=== PATIENT | female | born 1985 | race Caucasian/White ===

== ENCOUNTER → 2017-04-25 | Outpatient (CLI) | payer BC ==
--- NOTE | 2017-04-25 14:02 | RAD ---
Renal ultrasound 04/25/2017 Indication: Bilateral flank pain. Comparison study: None Findings: Ultrasound evaluation of the kidneys was performed. Static images were submitted to PACS. The right kidney measures 10.7 cm in length. Left kidney measures 10.3 cm in length. Kidneys are normal in appearance evidence of hydronephrosis, nephrolithiasis, or focal renal lesion. Blood flow the kidneys is unremarkable and color Doppler imaging. Limited visualization of the bladder is unremarkable. Bilateral ureteral jets are noted. Impression: Normal sonographic appearance of the kidneys
== END | disposition home or self-care (01) ==
LOC: US 12:53
PROVIDERS: ATTEND Nurse Practitioner Family
DX: R10.9 Unspecified abdominal pain (principal)
CPT/HCPCS: 76770

== ENCOUNTER 2017-05-13 15:20 | Emergency (ER) | payer BC ==
[~2017-05-13] VITALS: Ht 157.5 cm; Wt 99.3 kg
--- NOTE | 2017-05-13 16:10 | PHYS DOC ---
Past History Past Medical History: Bipolar, Hypertension Smoking: Cigarettes, Less than 1pk/day Adult General Chief Complaint Chief Complaint: HEADACHE HPI HPI 32-year-old female patient complaining of sharp and aching pain on top of her head for the last 8 days as a constant pain with episodes of sharp pain. Patient states during episodes of sharp pain she feels photophobia and numbness of her fingers. Patient denies history of head injury, migraine headache or headache, fever and chills, nausea and vomiting, neck pain. Patient rated her pain 8/10. Patient states she has had history of hypertension since she was 13 years old but doesn't take medication and seen by her primary care physician a few days ago and had prescription of medications and supposed to pick it up today. Review of Systems Review of Systems Constitutional: Denies fever or chills [] Eyes: Denies change in visual acuity, redness, or eye pain , reports photophobia ] HENT: Denies nasal congestion or sore throat [] Respiratory: Denies cough or shortness of breath [] Cardiovascular: No additional information not addressed in HPI [] GI: Denies abdominal pain, nausea, vomiting, bloody stools or diarrhea [] : Denies dysuria or hematuria [] Musculoskeletal: Denies back pain or joint pain [] Integument: Denies rash or skin lesions [] Neurologic: Reports headache headache, denies focal weakness or sensory changes [] Endocrine: Denies polyuria or polydipsia [] All other systems were reviewed and found to be within normal limits, except as documented in this note. Current Medications Current Medications Current Medications Medications (Trade) Dose Ordered Sig/[facility] Start Time Stop Time Status Last Admin Dose Admin Clonidine HCl (Catapres) 0.1 mg 1X ONCE 05/13/17 16:15 05/13/17 16:16 Allergies Allergies Allergies Coded Allergies Type Severity Reaction Last Updated Verified No Known Drug Allergies 05/13/17 No Physical Exam Physical Exam Constitutional: Well developed, well nourished, mild distress, non-toxic appearance anxious. [] HENT: Normocephalic, atraumatic, bilateral external ears normal, oropharynx moist, no oral exudates, nose normal. [] Eyes: PERRLA, EOMI, conjunctiva normal, no discharge. [] Neck: Normal range of motion, no tenderness, supple, no stridor. [] Cardiovascular:Heart rate regular rhythm, no murmur [] Lungs & Thorax: Bilateral breath sounds clear to auscultation [] Abdomen: Bowel sounds normal, soft, no tenderness, no masses, no pulsatile masses. [] Skin: Warm, dry, no erythema, no rash. [] Back: No tenderness, no CVA tenderness. [] Extremities: No tenderness, no cyanosis, no clubbing, ROM intact, no edema. [] Neurologic: Alert and oriented X 3, normal motor function, normal sensory function, no focal deficits noted. [] Psychologic:Anxious, judgement normal, mood normal. [] EKG EKG [] Radiology/Procedures Radiology/Procedures [] [place] [address] IMAGING REPORT Signed PATIENT: QING SAMUEL ACCOUNT: [id number] : 1985 LOCATION: ER AGE: 32 SEX: F EXAM STATUS: REG ER ORD. PHYSICIAN: RACHEL BYERS MD REASON: headache PROCEDURE: CT HEAD WO CONTRAST CT head without contrast 05/13/2017 Indication: Blurred vision with stabbing sensation behind the right eye and sinus. Comparison: CT head 10/12/2006 Technique: Multiple axial noncontrast CT images of the head were obtained from the skull base through the vertex. Findings: The ventricles, sulci and basal cisterns are within normal limits. Ryan-white matter differentiation is normal. There is no acute intracranial hemorrhage. There is no mass, mass effect or midline shift. Posterior fossa is within normal limits. Sellar and suprasellar cistern appear normal. Orbits are normal in appearance. Paranasal sinuses are well aerated. Mastoid air cells are well aerated. Scalp and calvaria are normal. Impression: There is no acute intracranial hemorrhage. Course & Med Decision Making Course & Med Decision Making Pertinent Imaging studies reviewed. (See chart for details) Evaluation of patient in ER showed 32-year-old female patient with history of hypertension without taking medication complaining of constant headache for 8 days. Patient had unremarkable physical exam. Blood pressure was 190s/110s at arrival. Patient treated with Toradol and clonidine and had unremarkable CT of head. Patient felt better at time of discharge. Patient already has prescription for hypertension and instructed to start her medication and follow up with her primary care physician regarding hypertension. discharge: I've spoken with the patient and/or caregivers. I've explained the patient's condition, diagnosis and treatment plan based on information available to me at this time. I've answered the patient's and/or caregivers questions and addressed any concerns. The patient and/or caregivers have a good understanding the patient's diagnosis, condition and treatment plan as can be expected at this point. Vital signs have been stabilized. The patient's condition is stable for discharge from the emergency department. The patient will pursue further outpatient evaluation with her primary care provider or other designated consulting physician as outlined in the discharge instructions. Patient and/or caregivers are agreeable to this plan of care and follow-up instructions have been explained in detail. The patient and/or caregivers have received these instructions in written format and expressed understanding of these discharge instructions. The patient and her caregivers are aware that if any significant change in condition or worsening of symptoms should prompt him to immediately return to this of the closest emergency department. If an emergent department is not readily available I would encourage him to call 911. Tomasz Disclaimer Dragon Disclaimer This electronic medical record was generated, in whole or in part, using a voice recognition dictation system. Departure Departure: Impression: Primary Impression: Headache Additional Impressions: Uncontrolled hypertension Tobacco abuse Tobacco abuse counseling Disposition: HOME, SELF-CARE (At 1750) Condition: IMPROVED Referrals: AYLIN MACIAS APRN (PCP) Patient Instructions: General Headache Without Cause, [id number], Hypertension Additional Instructions: Drink plenty of liquids Follow-up with your primary care physician in 3-5 days Return to ER if not getting better Scripts Naproxen (NAPROSYN) 500 Mg Tablet 500 MG PO BID, #14 Prov: RACHEL BYERS MD 05/13/17 Problem Qualifiers RACHEL BYERS MD May 13, 2017 16:10
[2017-05-13] MEDS ORDERED: cloNIDine HCL 0.1 MG TABLET PO ONE (16:15)
--- NOTE | 2017-05-13 16:47 | RAD ---
CT head without contrast 05/13/2017 Indication: Blurred vision with stabbing sensation behind the right eye and sinus. Comparison: CT head 10/12/2006 Technique: Multiple axial noncontrast CT images of the head were obtained from the skull base through the vertex. Findings: The ventricles, sulci and basal cisterns are within normal limits. Ryan-white matter differentiation is normal. There is no acute intracranial hemorrhage. There is no mass, mass effect or midline shift. Posterior fossa is within normal limits. Sellar and suprasellar cistern appear normal. Orbits are normal in appearance. Paranasal sinuses are well aerated. Mastoid air cells are well aerated. Scalp and calvaria are normal. Impression: There is no acute intracranial hemorrhage. PQRS Compliance Statement: One or more of the following individualized dose reduction techniques were utilized for this examination: 1. Automated exposure control 2. Adjustment of the mA and/or kV according to patient size 3. Use of iterative reconstruction technique
[2017-05-13] MEDS ORDERED: KETOROLAC 60 MG/2 ML VIAL. IM ONE (17:30)
[2017-05-13] MEDS ORDERED: NAPR-683 PO (17:47)
[2017-05-13 18:10] VITALS: BP 138/95
== END 2017-05-13 18:10 | disposition home or self-care (01) ==
LOC: ER 15:20
DX: R51 Headache (principal); I10 Essential (primary) hypertension; F31.9 Bipolar disorder, unspecified; F17.210 Nicotine dependence, cigarettes, uncomplicated; Z71.6 Tobacco abuse counseling
CPT/HCPCS: 70450; 96372; 99284; J1885

== ENCOUNTER 2019-06-01 15:19 | Emergency (ER) | payer BC ==
[~2019-06-01] VITALS: Ht 157.5 cm; Wt 98.4 kg
[~2019-06-01 15:19] MED LIST: NAPR-683 PO
[2019-06-01 15:57] LABS: BASO % 0 % (0-3); EOS # 0.1 x10^3/uL (0.0-0.7); EOS % 2 % (0-3); HEMATOCRIT 46.1 % (36.0-47.0); HEMOGLOBIN 16.1 g/dL (12.0-15.5); LYMPH # 1.6 x10^3/uL (1.0-4.8); LYMPH % 31 % (24-48); MEAN CORPUSCULAR HEMOGLOBIN 33 pg (25-35); MEAN CORPUSCULAR HGB CONC 35 g/dL (31-37); MEAN CORPUSCULAR VOLUME 94 fL (79-100); MONO # 0.4 x10^3/uL (0.0-1.1); MONO % 7 % (0-9); NEUT # 3.2 x10^3uL (1.8-7.7); NEUT % 60 % (31-73); PLATELET COUNT 120 x10^3/uL (140-400); RED BLOOD COUNT 4.93 x10^6/uL (3.50-5.40); RED CELL DISTRIBUTION WIDTH 12.8 % (11.5-14.5); WHITE BLOOD COUNT 5.4 x10^3/uL (4.0-11.0)
--- NOTE | 2019-06-01 16:04 | RAD ---
PORTABLE CHEST 1V History: Chest pain Comparison: None. Findings: No consolidation or pleural effusion. Normal heart size. No pneumothorax. Impression: 1. No acute cardiopulmonary process. Electronically signed by: Kofi Anderson DO (06/01/2019 4:01 PM) [id number]
[2019-06-01 16:05] LABS: CALCIUM 8.8 mg/dL (8.5-10.1); GFR 63.9; POTASSIUM 3.6 mmol/L (3.5-5.1)
[2019-06-01 16:10] LABS: ALBUMIN 3.9 g/dL (3.4-5.0); ALBUMIN/GLOBULIN RATIO 1.1 (1.0-1.7); MAGNESIUM 1.6 mg/dL (1.8-2.4); TOTAL BILIRUBIN 0.6 mg/dL (0.2-1.0); TOTAL PROTEIN 7.5 g/dL (6.4-8.2)
[2019-06-01 16:15] LABS: BILIRUBIN,URINE NEG (NEG); CLARITY,URINE CLEAR; COLOR,URINE STRAW; GLUCOSE,URINE NEG (NEG)
[2019-06-01 16:16] LABS: BACTERIA,URINE 0 /HPF (0-FEW); NITRITE,URINE NEG (NEG); RBC,URINE RARE /HPF (0-2); SQUAMOUS EPITHELIAL CELL,UR MOD /LPF; UROBILINOGEN,URINE 0.2 mg/dL (0.2 mg/dL); WBC,URINE RARE /HPF (0-4)
--- NOTE | 2019-06-01 16:31 | PHYS DOC ---
Past History Past Medical History: Bipolar, Hypertension Past Surgical History: No Surgical History Smoking: Cigarettes, Less than 1pk/day Alcohol Use: Occasionally Drug Use: None Adult General Chief Complaint Chief Complaint: MULTIPLE COMPLAINTS HPI HPI Patient is a 34-year-old female who presents with complaint of tingling in both of her arms and tightness in her chest. Patient states symptoms have been ongoing for the last few days. She denies any actual chest pain however. She also denies any shortness of breath. Patient denies any headache or laterali zing weakness. She denies any speech deficits. She does indicate that her blood pressure was elevated at home and she took her medication approximately 25 minutes before EMS arrived. [] Review of Systems Review of Systems Constitutional: Denies fever or chills [] Respiratory: Denies cough or shortness of breath [] Cardiovascular: No additional information not addressed in HPI [] GI: Denies abdominal pain, nausea, vomiting, bloody stools or diarrhea [] Integument: Denies rash or skin lesions [] Neurologic: Denies headache or focal weakness. Complains of tingling in her arms [] All other systems were reviewed and found to be within normal limits, except as documented in this note. Allergies Allergies Allergies Coded Allergies Type Severity Reaction Last Updated Verified No Known Drug Allergies 05/13/17 No Physical Exam Physical Exam Constitutional: Well developed, well nourished, no acute distress, non-toxic appearance. [] HENT: Normocephalic, atraumatic, bilateral external ears normal, oropharynx moist, no oral exudates, nose normal. [] Eyes: PERRLA, EOMI, conjunctiva normal, no discharge. [] Neck: Normal range of motion, no tenderness, supple, no stridor. [] Cardiovascular: Regular rate and rhythm [] Lungs & Thorax: Bilateral breath sounds clear to auscultation [] Abdomen: Bowel sounds normal, soft, no tenderness, no masses, no pulsatile masses. [] Skin: Warm, dry, no erythema, no rash. [] Extremities: No tenderness, no cyanosis, no clubbing, ROM intact, no edema. [] Neurologic: Alert and oriented X 3, no focal deficits noted. [] Current Patient Data Vital Signs Vital Signs Date Time Temp Pulse Resp B/P (MAP) Pulse Ox O2 Delivery O2 Flow Rate FiO2 06/01/19 15:31 97.7 102 30 197/109 (138) 100 Room Air Lab Results Laboratory Tests Test 06/01/19 15:25 06/01/19 15:28 White Blood Count 5.4 x10^3/uL (4.0-11.0) Red Blood Count 4.93 x10^6/uL (3.50-5.40) Hemoglobin 16.1 g/dL (12.0-15.5) H Hematocrit 46.1 % (36.0-47.0) Mean Corpuscular Volume 94 fL (79-100) Mean Corpuscular Hemoglobin 33 pg (25-35) Mean Corpuscular Hemoglobin Concent 35 g/dL (31-37) Red Cell Distribution Width 12.8 % (11.5-14.5) Platelet Count 120 x10^3/uL (140-400) L Neutrophils (%) (Auto) 60 % (31-73) Lymphocytes (%) (Auto) 31 % (24-48) Monocytes (%) (Auto) 7 % (0-9) Eosinophils (%) (Auto) 2 % (0-3) Basophils (%) (Auto) 0 % (0-3) Neutrophils # (Auto) 3.2 x10^3uL (1.8-7.7) Lymphocytes # (Auto) 1.6 x10^3/uL (1.0-4.8) Monocytes # (Auto) 0.4 x10^3/uL (0.0-1.1) Eosinophils # (Auto) 0.1 x10^3/uL (0.0-0.7) Basophils # (Auto) 0.0 x10^3/uL (0.0-0.2) Urine Collection Type Unknown Urine Color Straw Urine Clarity Clear Urine pH 5.5 Urine Specific [place] <=1.005 Urine Protein Neg (NEG-TRACE) Urine Glucose (UA) Neg mg/dL (NEG) Urine Ketones (Stick) Trace mg/dL (NEG) Urine Blood Neg (NEG) Urine Nitrite Neg (NEG) Urine Bilirubin Neg (NEG) Urine Urobilinogen Dipstick 0.2 mg/dL (0.2 mg/dL) Urine Leukocyte Esterase Neg (NEG) Urine RBC Rare /HPF (0-2) Urine WBC Rare /HPF (0-4) Urine Squamous Epithelial Cells Mod /LPF Urine Bacteria 0 /HPF (0-FEW) Sodium Level 135 mmol/L (136-145) L Potassium Level 3.6 mmol/L (3.5-5.1) Chloride Level 98 mmol/L (98-107) Carbon Dioxide Level 22 mmol/L (21-32) Anion Gap 15 (6-14) H Blood Urea Nitrogen 8 mg/dL (7-20) Creatinine 1.0 mg/dL (0.6-1.0) Estimated GFR (Cockcroft-Gault) 63.9 BUN/Creatinine Ratio 8 (6-20) Glucose Level 108 mg/dL (70-99) H Calcium Level 8.8 mg/dL (8.5-10.1) Magnesium Level 1.6 mg/dL (1.8-2.4) L Total Bilirubin 0.6 mg/dL (0.2-1.0) Aspartate Amino Transferase (AST) 32 U/L (15-37) Alanine Aminotransferase (ALT) 44 U/L (14-59) Alkaline Phosphatase 61 U/L (46-116) Troponin I Quantitative < 0.017 ng/mL (0-0.055) Total Protein 7.5 g/dL (6.4-8.2) Albumin 3.9 g/dL (3.4-5.0) Albumin/Globulin Ratio 1.1 (1.0-1.7) POC Urine HCG, Qualitative hcg negative (Negative) EKG EKG EKG demonstrates sinus tachycardia with a rate of 103 [] Radiology/Procedures Radiology/Procedures [] Impressions: PROCEDURE: PORTABLE CHEST 1V PORTABLE CHEST 1V History: Chest pain Comparison: None. Findings: No consolidation or pleural effusion. Normal heart size. No pneumothorax. Impression: 1. No acute cardiopulmonary process. Electronically signed by: Kofi Anderson DO (06/01/2019 4:01 PM) [id number] PROCEDURE: CT HEAD WO CONTRAST Exam: CT head INDICATION: Head pressure, elevated blood pressure paresthesias TECHNIQUE: Sequential axial images through the head were obtained without the administration of IV contrast. Comparisons: None FINDINGS: No focal parenchymal lesion or hemorrhage is identified. There is no midline shift or sulcal effacement. No acute vascular territory infarction is identified. Ryan-white distinction is preserved. The ventricular system is within normal limits without compression hydrocephalus. The basal cisterns are well maintained. The visualized portions of the paranasal sinuses and mastoid air cells are well-pneumatized. No acute fractures. IMPRESSION: No acute intracranial abnormality. Exposure: One or more of the following in the visualized dose reduction techniques were utilized for this examination: 1. Automated exposure control 2. Adjustment of the MA and/or KV according to patient size Use of iterative of reconstructive technique Electronically signed by: Shyanne Kang MD (06/01/2019 5:31 PM) [id number] Course & Med Decision Making Course & Med Decision Making Pertinent Labs and Imaging studies reviewed. (See chart for details) Patient moved to room upon arrival was evaluated by your medical staff after which an IV was established and blood work was drawn. Patient's work-up has returned unremarkable. Upon going into review work-up with patient, patient is presenting new complaints to include a lot of pressure in her head as well as burning pains that are going down her legs. Of note, patient noted to be hyperventilating during evaluation. No neurological deficits are noted on exam, once again. Dragon Disclaimer Dragon Disclaimer This electronic medical record was generated, in whole or in part, using a voice recognition dictation system. Departure Departure: Impression: Primary Impression: Essential hypertension Additional Impressions: Paresthesia Headache Dizziness Disposition: 01 HOME, SELF-CARE Condition: STABLE Referrals: CHIOMA HERNANDEZ (PCP) Patient Instructions: Headache, FAQs, Hypertension, Paresthesia, Vertigo Scripts Meclizine Hcl (MECLIZINE HCL) 25 Mg Tablet 1 TAB PO PRN TID PRN for DIZZINESS, #30 TAB Prov: SANDEEP REYES Jr. DO 06/01/19 Problem Qualifiers Additional Impressions: Headache Headache type: unspecified Headache chronicity pattern: unspecified pattern Intractability: not intractable Qualified Codes: R51 - Headache SANDEEP REYES Jr. DO Jun 01, 2019 16:31
--- NOTE | 2019-06-01 17:34 | RAD ---
Exam: CT head INDICATION: Head pressure, elevated blood pressure paresthesias TECHNIQUE: Sequential axial images through the head were obtained without the administration of IV contrast. Comparisons: None FINDINGS: No focal parenchymal lesion or hemorrhage is identified. There is no midline shift or sulcal effacement. No acute vascular territory infarction is identified. Ryan-white distinction is preserved. The ventricular system is within normal limits without compression hydrocephalus. The basal cisterns are well maintained. The visualized portions of the paranasal sinuses and mastoid air cells are well-pneumatized. No acute fractures. IMPRESSION: No acute intracranial abnormality. Exposure: One or more of the following in the visualized dose reduction techniques were utilized for this examination: 1. Automated exposure control 2. Adjustment of the MA and/or KV according to patient size Use of iterative of reconstructive technique Electronically signed by: Shyanne Kang MD (06/01/2019 5:31 PM) [id number]
[2019-06-01 17:40] VITALS: BP 154/98
[2019-06-01] MEDS ORDERED: MECL-75 PO (17:45)
--- NOTE | 2019-06-01 17:55 | EKG ---
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
[2019-06-01 17:58] LABS: BARBITURATES NEG (NEG); BENZODIAZEPINES NEG (NEG); CANNABINOIDS NEG (NEG); COCAINE NEG (NEG); METHADONE NEG (NEG); OPIATES NEG (NEG); PHENCYCLIDINE NEG (NEG)
[2019-06-01 18:02] LABS: AMPHETAMINE/METHAMPHETAMINE NEG (NEG)
== END 2019-06-01 17:50 | disposition home or self-care (01) ==
LOC: ER 15:19
DX: I10 Essential (primary) hypertension (principal); R20.2 Paresthesia of skin; R51 Headache; R42 Dizziness and giddiness; F17.210 Nicotine dependence, cigarettes, uncomplicated
CPT/HCPCS: 36415; 70450; 71045; 80053; 80307; 81001; 81025; 83735; 84484; 85025; 93005; 99285

== ENCOUNTER 2019-06-03 16:12 | Emergency (ER) | payer BC ==
[~2019-06-03] VITALS: Ht 157.5 cm; Wt 95.4 kg
[~2019-06-03 16:12] MED LIST changes: +MECL-75 PO
[2019-06-03] MEDS ORDERED: LORA-254 PO (16:18)
[2019-06-03] MEDS ORDERED: CLON0.1T PO (16:18)
--- NOTE | 2019-06-03 16:18 | PHYS DOC ---
Past History Past Medical History: Anxiety, Bipolar, Hypertension Past Surgical History: No Surgical History Smoking: Cigarettes, Less than 1pk/day Alcohol Use: Occasionally Drug Use: None Adult General Chief Complaint Chief Complaint: Dizziness, concern for elevated blood pressure HPI HPI 34-year-old female presents with dizziness and tingling in limbs with associated elevated blood pressure. Patient was seen 2 days ago for same. [facility] review notes patient with normal CT head, chest x-ray, and laboratory values. Patient does have a history of hypertension. Patient is currently taking 2 medications and recently saw her PCP who added additional medication which she has not yet taken. Patient does report history of anxiety. Patient had previously been fully worked up and ER 2 days ago with decreased and blood pressure without intervention. There was concern patient likely had anxiety component to her elevated blood pressure. Patient denies suicidal or homicidal ideation. Reports she is concerned there might be something still wrong. Review of Systems Review of Systems Constitutional: Denies fever or chills Eyes: Denies redness or eye pain HENT: Denies nasal congestion or sore throat Respiratory: Denies cough or shortness of breath Cardiovascular: Denies chest pain or palpitations GI: Denies abdominal pain, nausea, or vomiting : Denies dysuria or hematuria Musculoskeletal: Denies back pain or joint pain Integument: Denies rash or skin lesions Neurologic: Denies headache or focal weakness; reports dizziness and tingling sensation and limbs Psychiatric: Reports anxiety; denies suicidal ideation or homicidal ideation Complete systems were reviewed and found to be within normal limits, except as documented in this note. Allergies Allergies Allergies Coded Allergies Type Severity Reaction Last Updated Verified No Known Drug Allergies 05/13/17 No Physical Exam Physical Exam Constitutional: Well developed, well nourished, no acute distress, non-toxic appearance HENT: Normocephalic, atraumatic, oropharynx moist Eyes: PERRL, EOMI, conjunctiva normal, no discharge, no nystagmus Neck: Normal range of motion, no tenderness, supple Cardiovascular: Heart rate normal, regular rhythm Lungs & Thorax: Bilateral breath sounds clear to auscultation, no wheezing Abdomen: Soft, no tenderness Skin: Warm, dry, no erythema, no rash Extremities: No tenderness, ROM intact, no edema Neurologic: Alert and oriented X 3, normal motor function, normal sensory function, no focal deficits noted Psychologic: Affect anxious, judgment normal EKG EKG [] Radiology/Procedures Radiology/Procedures [] Course & Med Decision Making Course & Med Decision Making 34-year-old female who is neurologically intact presents with reported dizziness and tingling in extremities. Patient had been seen and fully worked up 2 days prior with concern that she might have elevated blood pressure. Patient's blood pressure at that time had resolved without intervention. Patient initially 140s over 100s upon arrival. NIHSS 0. Patient without end organ damage on previous workup. Patient appears very anxious. Ativan provided. A prescription for clonidine also provided with when necessary dosing for systolic blood pressure above 185 and/or diastolic blood pressure above 105. Patient stable for discharge with outpatient follow-up with PCP. Discussed findings and plan with patient, who acknowledges understanding and agreement. Dragon Disclaimer Dragon Disclaimer This electronic medical record was generated, in whole or in part, using a voice recognition dictation system. Departure Departure: Impression: Primary Impression: Hypertension Additional Impression: Anxiety Disposition: 01 HOME, SELF-CARE Condition: STABLE Referrals: CHIOMA HERNANDEZ (PCP) Patient Instructions: Anxiety and Panic Attacks, [id number], Hypertension, [id number] Scripts Lorazepam (ATIVAN) 1 Mg Tablet 0.5 TAB PO TID PRN for ANXIETY MDD 3 Tablet(s), #10 TAB 0 Refills Prov: GERI ZAIDI DO 06/03/19 Clonidine Hcl (CLONIDINE HCL) 0.1 Mg Tablet 1 TAB PO Q8HRS PRN for ELEVATED BP, SEE COMMENTS, #14 TAB Take for systolic (upper) blood pressure greater than 185 and/or for diastolic (lower) blood pressure greather than 105. Prov: GERI ZAIDI DO 06/03/19 NIHSS - ED NIH Stroke Scale: NIH Stroke Scale Response (Comments) Value Level of Consciousness: 0 Alert/Responsive 0 LOC Questions: 0 Answers both correctly 0 LOC Commands: 0 Performs both tasks 0 Best Gaze: 0 Normal 0 Visual: 0 No visual loss 0 Facial Palsy: 0 Normal, symmetrical 0 Motor - Left Arm 0 No drift 0 Motor - Right Arm 0 No drift 0 Motor - Left Leg 0 No drift 0 Motor: Right Leg 0 No drift 0 Limb Ataxia: 0 Absent 0 Sensory: 0 No loss 0 Best Language: 0 Normal 0 Dysathria: 0 Normal 0 Extinction and Inattention: 0 Normal 0 Total 0 Problem Qualifiers Primary Impression: Hypertension Hypertension type: unspecified Qualified Codes: I10 - Essential (primary) hypertension GERI ZAIDI DO Jun 03, 2019 16:18
[2019-06-03] MEDS ORDERED: LORazepam 1 MG TABLET ONE (16:29)
[2019-06-03] MEDS ORDERED: LORazepam 1 MG TABLET PO ONE (16:45)
[2019-06-03 16:58] VITALS: BP 157/108
== END 2019-06-03 16:34 | disposition home or self-care (01) ==
LOC: ER 16:12
DX: I10 Essential (primary) hypertension (principal); F41.9 Anxiety disorder, unspecified; F31.9 Bipolar disorder, unspecified; F17.210 Nicotine dependence, cigarettes, uncomplicated
CPT/HCPCS: 99283

== ENCOUNTER 2020-01-01 13:20 | Emergency (ER) | payer BC ==
[~2020-01-01] VITALS: Ht 157.5 cm; Wt 98.9 kg
[~2020-01-01 13:20] MED LIST changes: +CLON0.1T PO; +LORA-254 PO
--- NOTE | 2020-01-01 13:45 | EKG ---
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
--- NOTE | 2020-01-01 13:50 | PHYS DOC ---
Past History Past Medical History: Anxiety, Hypertension Past Surgical History: Other Additional Past Surgical Histo: WISDOM TEETH Smoking: Cigarettes, Less than 1pk/day Alcohol Use: Occasionally Drug Use: None Adult General Chief Complaint Chief Complaint: DIZZY/LIGHT HEADED HPI HPI Patient is a 34-year-old female who presents for dizziness. This is an acute on chronic process. Patient reports having intermittent feelings of dizziness for which she feels drunk and lightheaded since May. Nothing known makes better or worse. Episode today occurred after taking lorazepam and clonidine. She has history of anxiety, has had limited outpatient work-up for dizziness so far. Patient managed by primary care physician only at this time. No concerning fever, recent febrile illness, chest pain, shortness of breath, abdominal pain, nausea vomiting diarrhea. She does admit to having URI symptoms for past 2 weeks. She has not had any falls Review of Systems Review of Systems Fourteen body systems of review of systems have been reviewed. See HPI for pertinent positives and negative responses, other amaya all other systems are negative, non-pertinent or non-contributory Allergies Allergies Allergies Coded Allergies Type Severity Reaction Last Updated Verified No Known Drug Allergies 01/01/20 No Physical Exam Physical Exam Constitutional: Well developed, well nourished, no acute distress, non-toxic appearance. HENT: Normocephalic, atraumatic, bilateral external ears normal, oropharynx moist, no oral exudates, moderate postnasal drip present, moderately engorged nasal turbinates with clear rhinorrhea present, external nose normal. Eyes: PERRLA, EOMI, conjunctiva normal, no discharge. Neck: Normal range of motion, no tenderness, supple, no stridor. Cardiovascular: Heart rate regular, sinus rhythm, no murmurs rubs or gallops Lungs & Thorax: Bilateral breath sounds clear to auscultation Abdomen: Bowel sounds normal, soft, no tenderness, no masses, no pulsatile masses. Nonsurgical abdomen, no peritoneal signs Skin: Warm, dry, no erythema, no rash. Back: No tenderness, no CVA tenderness. Extremities: No tenderness, no cyanosis, no clubbing, ROM intact, no edema. Neurologic: Alert and oriented X 3, normal motor & sensory function, no focal deficits noted. Negative hints, cranial nerves II through XII fully intact Psychologic: Affect normal, judgement normal, mood normal. Current Patient Data Vital Signs Vital Signs Date Time Temp Pulse Resp B/P (MAP) Pulse Ox O2 Delivery O2 Flow Rate FiO2 01/01/20 13:27 107 28 121/60 (80) 100 Room Air Lab Results Laboratory Tests Test 01/01/20 13:28 01/01/20 14:10 01/01/20 14:29 White Blood Count 6.2 x10^3/uL (4.0-11.0) Red Blood Count 4.73 x10^6/uL (3.50-5.40) Hemoglobin 15.5 g/dL (12.0-15.5) Hematocrit 45.8 % (36.0-47.0) Mean Corpuscular Volume 97 fL (79-100) Mean Corpuscular Hemoglobin 33 pg (25-35) Mean Corpuscular Hemoglobin Concent 34 g/dL (31-37) Red Cell Distribution Width 12.6 % (11.5-14.5) Platelet Count 170 x10^3/uL (140-400) Neutrophils (%) (Auto) 60 % (31-73) Lymphocytes (%) (Auto) 30 % (24-48) Monocytes (%) (Auto) 8 % (0-9) Eosinophils (%) (Auto) 2 % (0-3) Basophils (%) (Auto) 0 % (0-3) Neutrophils # (Auto) 3.7 x10^3uL (1.8-7.7) Lymphocytes # (Auto) 1.9 x10^3/uL (1.0-4.8) Monocytes # (Auto) 0.5 x10^3/uL (0.0-1.1) Eosinophils # (Auto) 0.1 x10^3/uL (0.0-0.7) Basophils # (Auto) 0.0 x10^3/uL (0.0-0.2) Sodium Level 135 mmol/L (136-145) Potassium Level 3.2 mmol/L (3.5-5.1) Chloride Level 100 mmol/L (98-107) Carbon Dioxide Level 23 mmol/L (21-32) Anion Gap 12 (6-14) Blood Urea Nitrogen 7 mg/dL (7-20) Creatinine 1.0 mg/dL (0.6-1.0) Estimated GFR (Cockcroft-Gault) 63.9 BUN/Creatinine Ratio 7 (6-20) Glucose Level 109 mg/dL (70-99) Calcium Level 9.2 mg/dL (8.5-10.1) Total Bilirubin 0.5 mg/dL (0.2-1.0) Aspartate Amino Transf (AST/SGOT) 15 U/L (15-37) Alanine Aminotransferase (ALT/SGPT) 30 U/L (14-59) Alkaline Phosphatase 59 U/L (46-116) Troponin I Quantitative < 0.017 ng/mL (0-0.055) Total Protein 7.6 g/dL (6.4-8.2) Albumin 4.3 g/dL (3.4-5.0) Albumin/Globulin Ratio 1.3 (1.0-1.7) Urine Collection Type Unknown Urine Color Straw Urine Clarity Clear Urine pH 6.0 Urine Specific [place] <=1.005 Urine Protein Neg (NEG-TRACE) Urine Glucose (UA) Neg mg/dL (NEG) Urine Ketones (Stick) Neg mg/dL (NEG) Urine Blood Neg (NEG) Urine Nitrite Neg (NEG) Urine Bilirubin Neg (NEG) Urine Urobilinogen Dipstick 0.2 mg/dL (0.2 mg/dL) Urine Leukocyte Esterase Neg (NEG) Urine RBC 0 /HPF (0-2) Urine WBC 0 /HPF (0-4) Urine Squamous Epithelial Cells Occ /LPF Urine Bacteria 0 /HPF (0-FEW) Urine Mucus /LPF Urine Opiates Screen Neg (NEG) Urine Methadone Screen Neg (NEG) Urine Barbiturates Neg (NEG) Urine Phencyclidine Screen Neg (NEG) Urine Amphetamine/Methamphetamine Neg (NEG) Urine Benzodiazepines Screen Neg (NEG) Urine Cocaine Screen Neg (NEG) Urine Cannabinoids Screen Neg (NEG) Urine Ethyl Alcohol Neg (NEG) Bedside Urine HCG, Qualitative hcg negative (Negative) EKG EKG EKG ordered and interpreted by myself at 1350 hrs. as sinus tachycardia at 182 bpm, unremarkable intervals, no axis deviation, no ischemic findings, no STEMI Radiology/Procedures Radiology/Procedures PROCEDURE: CHEST AP ONLY INDICATION: Reason: DIZZINESS / Spl. Instructions: / History: COMPARISON: June 01, 2019 FINDINGS: Single view of chest obtained. No focal airspace consolidation. Cardiomediastinal contour unremarkable. No acute osseous abnormality. There is some calcified nodules which could be sequela of old granulomatous disease. IMPRESSION: * No focal airspace consolidation or edema. Electronically signed by: Reinaldo Jacques MD (01/01/2020 2:00 PM) [id number] Heart Score HEART Score for Chest Pain: HEART Score for Chest Pain Response (Comments) Value History Slighlty/Non-Suspicious 0 ECG Normal 0 Age < 45 0 Risk Factors 1 or 2 Risk Factors 1 Troponin < Normal Limit 0 Total 1 Risk Factors: Risk Factors: DM, Current or recent (<one month) smoker, HTN, HLP, family history of CAD, obesity. Risk Scores: Risk Factors: DM, Current or recent (<one month) smoker, HTN, HLP, family history of CAD, obesity. Course & Med Decision Making Course & Med Decision Making Nontoxic well-appearing patient seen on evaluation ABCs nonconcerning Comprehensive history and physical exam obtained, no obvious surgical and/or emergent findings Comprehensive work-up pursued and grossly negative Discussed most likely diagnosis of labor enteritis causing patient's dizziness versus medication induced dizziness from lorazepam and/or clonidine use Patient feeling better after ER intervention. Joint decision for discharge home with close PCP follow-up. Given that she has not had any falls and is currently ambulatory I feel she is safe to be discharged home I advised patient she would benefit from continued outpatient management with consideration for echocardiogram, carotid echo, physical therapy referral and potential ENT referral I offered patient Medrol Dosepak for labyrinthitis, she will take this and antihistamine in outpatient setting until she can follow-up with primary care physician Strict return precautions were discussed with good understanding by patient, all questions and concerns addressed prior to ER departure in stable condition Dragon Disclaimer Dragon Disclaimer This electronic medical record was generated, in whole or in part, using a voice recognition dictation system. Departure Departure: Impression: Primary Impression: Dizziness Additional Impression: Viral syndrome Disposition: 01 DC HOME SELF CARE/HOMELESS Condition: STABLE Referrals: CHIOMA HERNANDEZ (PCP) Patient Instructions: Dizziness, Viral Syndrome Additional Instructions: As discussed prior to ER departure, please call your primary care physician to schedule outpatient follow-up in upcoming 3 to 14 days As discussed, you would benefit from repeat BMP lab work to check your potassium level. I would like you to have repeat examination regarding your viral syndrome and suspect labyrinthitis causing your dizziness If you continue to experience these symptoms, I would recommend your primary care physician investigate your medication list and also consider need for physical therapy referrals and/or ENT versus neurology referrals If any concerning signs or symptoms or he present prior to outpatient follow-up please do not hesitate to present back for repeat evaluation. It was a pleasure to take care of you today and I wish you a speedy recovery Scripts Methylprednisolone (MEDROL) 4 Mg Tab.ds.pk 1 PKG PO UD for Dizziness, #1 PKG Prov: HARSH PEÑA DO 01/01/20 Problem Qualifiers HARSH PEÑA DO Jan 01, 2020 13:50
--- NOTE | 2020-01-01 14:03 | RAD ---
INDICATION: Reason: DIZZINESS / Spl. Instructions: / History: COMPARISON: June 01, 2019 FINDINGS: Single view of chest obtained. No focal airspace consolidation. Cardiomediastinal contour unremarkable. No acute osseous abnormality. There is some calcified nodules which could be sequela of old granulomatous disease. IMPRESSION: * No focal airspace consolidation or edema. Electronically signed by: Reinaldo Jacques MD (01/01/2020 2:00 PM) [id number]
[2020-01-01 14:06] LABS: BASO % 0 % (0-3); EOS # 0.1 x10^3/uL (0.0-0.7); EOS % 2 % (0-3); HEMATOCRIT 45.8 % (36.0-47.0); HEMOGLOBIN 15.5 g/dL (12.0-15.5); LYMPH # 1.9 x10^3/uL (1.0-4.8); LYMPH % 30 % (24-48); MEAN CORPUSCULAR HEMOGLOBIN 33 pg (25-35); MEAN CORPUSCULAR HGB CONC 34 g/dL (31-37); MEAN CORPUSCULAR VOLUME 97 fL (79-100); MONO # 0.5 x10^3/uL (0.0-1.1); MONO % 8 % (0-9); NEUT # 3.7 x10^3uL (1.8-7.7); NEUT % 60 % (31-73); PLATELET COUNT 170 x10^3/uL (140-400); RED BLOOD COUNT 4.73 x10^6/uL (3.50-5.40); RED CELL DISTRIBUTION WIDTH 12.6 % (11.5-14.5); WHITE BLOOD COUNT 6.2 x10^3/uL (4.0-11.0)
[2020-01-01 14:12] LABS: CALCIUM 9.2 mg/dL (8.5-10.1); GFR 63.9; POTASSIUM 3.2 mmol/L (3.5-5.1)
[2020-01-01] MEDS ORDERED: IV NORMAL SALINE 1,000ML 1,000 ML IV ONE (14:15)
[2020-01-01 14:20] LABS: ALBUMIN 4.3 g/dL (3.4-5.0); ALBUMIN/GLOBULIN RATIO 1.3 (1.0-1.7); TOTAL BILIRUBIN 0.5 mg/dL (0.2-1.0); TOTAL PROTEIN 7.6 g/dL (6.4-8.2)
[2020-01-01 14:39] LABS: BARBITURATES NEG (NEG); BENZODIAZEPINES NEG (NEG); CANNABINOIDS NEG (NEG); COCAINE NEG (NEG); METHADONE NEG (NEG); OPIATES NEG (NEG); PHENCYCLIDINE NEG (NEG)
[2020-01-01 14:44] LABS: AMPHETAMINE/METHAMPHETAMINE NEG (NEG)
[2020-01-01 14:45] LABS: BACTERIA,URINE 0 /HPF (0-FEW); BILIRUBIN,URINE NEG (NEG); CLARITY,URINE CLEAR; COLOR,URINE STRAW; GLUCOSE,URINE NEG (NEG); NITRITE,URINE NEG (NEG); RBC,URINE 0 /HPF (0-2); UROBILINOGEN,URINE 0.2 mg/dL (0.2 mg/dL); WBC,URINE 0 /HPF (0-4)
[2020-01-01 14:46] LABS: SQUAMOUS EPITHELIAL CELL,UR OCC /LPF
[2020-01-01] MEDS ORDERED: METH4TAB2 PO (15:44)
[2020-01-01] MEDS ORDERED: POTASSIUM CHLORIDE 20 MEQ TABLET.ER. PO ONE (15:45)
[2020-01-01 15:55] VITALS: BP 133/93
== END 2020-01-01 16:01 | disposition home or self-care (01) ==
LOC: ER 13:20
DX: B34.9 Viral infection, unspecified (principal); R42 Dizziness and giddiness; F41.9 Anxiety disorder, unspecified; I10 Essential (primary) hypertension; F17.210 Nicotine dependence, cigarettes, uncomplicated; Z98.890 Other specified postprocedural states
CPT/HCPCS: 36415; 71045; 80053; 80307; 81001; 81025; 84443; 84484; 85025; 93005; 96360; 96361; 99285; J7030

== ENCOUNTER 2021-02-01 17:44 | Emergency (ER) | payer BC, OTHER ==
[~2021-02-01] VITALS: Ht 157.5 cm; Wt 98.9 kg
[~2021-02-01 17:44] MED LIST changes: +METH4TAB2 PO
--- NOTE | 2021-02-01 18:01 | PHYS DOC ---
Past History Past Medical History: Anxiety, Hypertension Past Surgical History: Other Additional Past Surgical Histo: WISDOM TEETH Smoking: Cigarettes, Less than 1pk/day Alcohol Use: Occasionally Drug Use: None General Adult EDM: Chief Complaint: HYPERTENSION HPI: HPI: "My blood pressure has been up... ".. " I am not sure why..."... Patient is a 35 year old female who presents with above hx and complaints of h ypertension and mild headache. . Patient has past medical history of anxiety, bipolar, hypertension, tobacco use, and deconditioning. Patient normally follows with [facility] for care. No recent travel. No severe ill contacts. Review of Systems: Review of Systems: Constitutional: Denies fever or chills Eyes: Denies change in visual acuity HENT: Denies nasal congestion or sore throat Respiratory: Denies cough or shortness of breath Cardiovascular: Denies chest pain or edema. Complains of elevated blood pressure GI: Denies abdominal pain, nausea, vomiting, bloody stools or diarrhea : Denies dysuria Musculoskeletal: Denies back pain or joint pain Integument: Denies rash Neurologic: Complains of mild headache,. Denies focal weakness or sensory c hanges Endocrine: Denies polyuria or polydipsia Lymphatic: Denies swollen glands Psychiatric: Denies depression or anxiety Family History: Family History: Noncontributory to presentation Current Medications: Current Meds: See nursing for home meds Allergies: Allergies: Allergies Coded Allergies Type Severity Reaction Last Updated Verified No Known Drug Allergies 01/01/20 No Physical Exam: PE: Constitutional: , no acute distress, non-toxic appearance. [] HENT: Normocephalic, atraumatic, bilateral external ears normal, oropharynx moist, no oral exudates, nose normal. [] Eyes: PERRLA, EOMI, conjunctiva normal, no discharge. [] Neck: Normal range of motion, no tenderness, supple, no stridor. [] Cardiovascular:Heart rate regular rhythm, no murmur [] PMI slightly to the left Lungs & Thorax: Bilateral breath sounds equal apex with few scattered wheezes on auscultation [] Abdomen: Bowel sounds normal, soft, no tenderness, no masses, no pulsatile masses. Obese. Skin: Warm, dry, no erythema, no rash. [] Back: Lumbarsacral tenderness, Some raditation into sciatica bilateral. no CVA tenderness. [] Extremities: No tenderness, no cyanosis, no clubbing, ROM intact, no edema. No cording appreciated Neurologic: Alert and oriented X 3, normal motor function, normal sensory function, no focal deficits noted. [] Psychologic: Affect anxious, judgement normal, mood normal. [] EKG: EKG: My interpretation EKG shows a sinus tachycardia at 102 bpm. No findings of acute STEMI of contralateral changes time of this EKG is 1813 hrs. Radiology/Procedures: Radiology/Procedures: [address] [address] IMAGING REPORT Signed PATIENT: QING SAMUEL AACCOUNT: [id number] : 1985 LOCATION: ER AGE: 35 SEX: F EXAM STATUS: REG ER ORD. PHYSICIAN: ANGUS BACK MD REASON: exacerbation of head ache, visual changes PROCEDURE: CT HEAD AND CERVICAL SPINE WO Exam Date: 02/01/2021 7:[address] HEAD AND C-SPINE WO Indication: Reason: exacerbation of head ache, visual changes / Spl. In structions: / History: . One or more of the following dose reduction techniques were utilized: *Automated exposure control (AEC) *Adjustment of mA and/or kV according to patient size *Use of iterative reconstruction technique *CT scan done according to ALARA, or ALARA/IMAGE GENTLY EXAMINATION: CT OF THE HEAD WITHOUT CONTRAST INDICATION: Trauma, head injury, headache; TECHNIQUE: Noncontrast helical axial CT images of the head were obtained. COMPARISON: June 01, 2019 FINDINGS: The ventricles and sulci are normal for the patient's stated age. There is no evidence of acute intracranial hemorrhage, extra-axial collection, mass effect, midline shift, or acute territorial infarct. No lesion of the skull base or the calvarium is seen. The visualized paranasal sinuses, mastoid air cells, and orbits are normal in appearance. IMPRESSION: No evidence for acute intracranial abnormality. EXAMINATION: CT OF THE CERVICAL SPINE WITHOUT CONTRAST Clinical Indication: Cervical spine pain after trauma Technique: Thin cut helical axial CT images through the cervical spine were obtained without contrast on a multi-detector CT scanner. Source data was then reconstructed into sagittal and coronal planes. Findings: Alignment is maintained without spondylolisthesis. Vertebral body heights are maintained without acute fracture. Disc spaces are preserved. No significant prevertebral soft tissue swelling is demonstrated. No severe osseous central canal stenosis is seen. Impression: No evidence of acute cervical spine fracture or subluxation. Electronically signed by: Fadi Go MD (02/01/2021 8:09 PM) [facility] DICTATED AND SIGNED BY: FADI GO MD DATE: 02/01/212006 CC: ANGUS BACK MD; CHIOMA HERNANDEZ ~MTH0 [address] [address] IMAGING REPORT Signed PATIENT: QING SAMUEL AACCOUNT: [id number] : 1985 LOCATION: ER AGE: 35 SEX: F EXAM STATUS: REG ER ORD. PHYSICIAN: ANGUS BACK MD REASON: cp PROCEDURE: PORTABLE CHEST 1V EXAMINATION: XR CHEST 1V CLINICAL HISTORY: Chest pain EXAM DATE/TIME: 02/01/2021 6:34 PM COMPARISON: 01/01/2020 FINDINGS: Lines, Tubes, and Devices: None. Cardiomediastinal Silhouette: Within normal limits. Lungs and Pleura: No evidence of focal airspace consolidation or pleural effusion. Pulmonary vasculature unremarkable. Bones and Soft Tissues: No acute osseous abnormality. IMPRESSION: No evidence of acute cardiopulmonary abnormality. Electronically signed by: Austen Miranda DO (02/01/2021 6:45 PM) [facility] DICTATED AND SIGNED BY: AUSTEN MIRANDA DO DATE: 02/01/21 184 CC: ANGUS BACK MD; CHIOMA HERNANDEZ ~MTH0 0 [][address] [place] [address] IMAGING REPORT Signed PATIENT: QING SAMUEL AACCOUNT: [id number] : 1985 LOCATION: ER AGE: 35 SEX: F EXAM STATUS: REG ER ORD. PHYSICIAN: ANGUS BACK MD REASON: cp PROCEDURE: PORTABLE CHEST 1V EXAMINATION: XR CHEST 1V CLINICAL HISTORY: Chest pain EXAM DATE/TIME: 02/01/2021 6:34 PM COMPARISON: 01/01/2020 FINDINGS: Lines, Tubes, and Devices: None. Cardiomediastinal Silhouette: Within normal limits. Lungs and Pleura: No evidence of focal airspace consolidation or pleural effusion. Pulmonary vasculature unremarkable. Bones and Soft Tissues: No acute osseous abnormality. IMPRESSION: No evidence of acute cardiopulmonary abnormality. Electronically signed by: Austen Miranda DO (02/01/2021 6:45 PM) [facility] DICTATED AND SIGNED BY: AUSTEN MIRANDA DO DATE: 02/01/211843 CC: ANGUS BACK MD; CHIOMA HERNANDEZ ~MTH0 0 Heart Score: C/O Chest Pain: N/A Risk Factors: Risk Factors: DM, Current or recent (<one month) smoker, HTN, HLP, family history of CAD, obesity. Risk Scores: Score 0 - 3: 2.5% MACE over next 6 weeks - Discharge Home Score 4 - 6: 20.3% MACE over next 6 weeks - Admit for Clinical Observation Score 7 - 10: 72.7% MACE over next 6 weeks - Early Invasive Strategies Course & Med Decision Making: Course & Med Decision Making Pertinent Labs and Imaging studies reviewed. (See chart for details) Pt. still complaints of headache and HTN. Will obtain CT Head. Patient wear clonidine patch. Follow-up primary care. Review ED record. Document blood pressures 3 times a day and keep this record to show to primary care. Return if any concerns. Take Flexeril 10 mg 3 times a day as needed for muscle spasms. If continued pain may need MRI of the spine to fully evaluate lumbosacral pain. Impression: 1. Hypertension 2. Headache 3. Lumbar Sacral Back Pain [] Dragon Disclaimer: Dragon Disclaimer: This electronic medical record was generated, in whole or in part, using a voice recognition dictation system. Departure Departure: Referrals: CHIOMA HERNANDEZ (PCP) Scripts Hydrocodone/Ibuprofen (HYDROCODONE-IBUPROFEN 7.5-200 ) 1 Each Tablet 1 TAB PO PRN Q6HRS PRN for PAIN, #30 TAB 0 Refills Prov: ANGUS BACK MD 02/01/21 Cyclobenzaprine Hcl (CYCLOBENZAPRINE HCL) 10 Mg Tablet 10 MG PO tidprn for Muscle spasms, #30 TAB Prov: ANGUS BACK MD 02/01/21 Tomasz Disclaimer This chart was dictated in whole or in part using Voice Recognition software in a busy, high-work load, and often noisy Emergency Department environment. It may contain unintended and wholly unrecognized errors or omissions. ANGUS BACK MD Feb 01, 2021 18:01
[2021-02-01] MEDS ORDERED: cloNIDine HCL 0.1 MG TABLET PO ONE (18:30)
[2021-02-01] MEDS ORDERED: KETOROLAC 60 MG/2 ML VIAL. IM ONE (18:30)
[2021-02-01] MEDS ORDERED: IV RINGERS SOLUTION,LACTATED 1,000 ML IV SCH (18:30)
[2021-02-01] MEDS ORDERED: cloNIDine TTS-2 1 PATCH PATCH TD ONE (18:30)
--- NOTE | 2021-02-01 18:47 | RAD ---
EXAMINATION: XR CHEST 1V CLINICAL HISTORY: Chest pain EXAM DATE/TIME: 02/01/2021 6:34 PM COMPARISON: 01/01/2020 FINDINGS: Lines, Tubes, and Devices: None. Cardiomediastinal Silhouette: Within normal limits. Lungs and Pleura: No evidence of focal airspace consolidation or pleural effusion. Pulmonary vasculat ure unremarkable. Bones and Soft Tissues: No acute osseous abnormality. IMPRESSION: No evidence of acute cardiopulmonary abnormality. Electronically signed by: Laci Orozco DO (02/01/2021 6:45 PM) [facility]
--- NOTE | 2021-02-01 18:55 | RAD ---
EXAMINATION: CT LUMBAR SPINE WO CLINICAL HISTORY: Increased back pain after two adjustments TECHNIQUE: Spiral, high resolution axial images were obtained from the thoracolumbar junction to the sacrum with sagittal and coronal planar reconstructions. CT Dose Reduction Employed: One or more of the following individualized dose reduction techniques wer e utilized for this examination: 1. Automated exposure control 2. Adjustment of the mA and/or kV ac cording to patient size 3. Use of iterative reconstruction technique. COMPARISON: None FINDINGS: Alignment: Normal anatomic alignment. Osseous Structures: No evidence of acute fracture or spondylolisthesis. SI joints within normal limit s. Degenerative Changes: Mild degenerative disc disease at L4-5. Mild neural foraminal narrowing at L4-5 and L5-S1. No evidence of high-grade osseous spinal stenosis. Multilevel facet arthropathy, greatest in the upper lumbar spine. Soft Tissues: Paraspinal soft tissues unremarkable. Intrauterine contraceptive device in place. IMPRESSION: No evidence of acute osseous abnormality involving the lumbar spine. Mild degenerative findings as described. Electronically signed by: Laci Orozco DO (02/01/2021 6:52 PM) [facility]
[2021-02-01] MEDS ORDERED: KETOROLAC 30 MG/ML VIAL. IVP ONE (19:00)
[2021-02-01 19:01] LABS: BASO % 0 % (0-3); EOS % 1 % (0-3); HEMATOCRIT 46.1 % (36.0-47.0); HEMOGLOBIN 15.6 g/dL (12.0-15.5); LYMPH # 1.4 x10^3/uL (1.0-4.8); LYMPH % 21 % (24-48); MEAN CORPUSCULAR HEMOGLOBIN 32 pg (25-35); MEAN CORPUSCULAR HGB CONC 34 g/dL (31-37); MEAN CORPUSCULAR VOLUME 96 fL (79-100); MONO # 0.5 x10^3/uL (0.0-1.1); MONO % 7 % (0-9); NEUT # 4.9 x10^3uL (1.8-7.7); NEUT % 72 % (31-73); PLATELET COUNT 174 x10^3/uL (140-400); RED CELL DISTRIBUTION WIDTH 12.7 % (11.5-14.5); WHITE BLOOD COUNT 6.8 x10^3/uL (4.0-11.0)
[2021-02-01 19:11] LABS: BACTERIA,URINE 0 /HPF (0-FEW); BILIRUBIN,URINE NEG (NEG); CLARITY,URINE CLEAR; COLOR,URINE YELLOW; GLUCOSE,URINE NEG (NEG); NITRITE,URINE NEG (NEG); RBC,URINE 0 /HPF (0-2); SQUAMOUS EPITHELIAL CELL,UR OCC /LPF; UROBILINOGEN,URINE 0.2 mg/dL (0.2 mg/dL); WBC,URINE 0 /HPF (0-4)
[2021-02-01 19:12] LABS: CALCIUM 8.9 mg/dL (8.5-10.1); CREATININE 0.9 mg/dL (0.6-1.0); GFR 71.7; POTASSIUM 4.2 mmol/L (3.5-5.1)
[2021-02-01 19:24] LABS: ALBUMIN 4.2 g/dL (3.4-5.0); DIRECT BILIRUBIN 0.2 mg/dL (0.0-0.2); TOTAL BILIRUBIN 0.4 mg/dL (0.2-1.0); TOTAL PROTEIN 7.1 g/dL (6.4-8.2)
[2021-02-01] MEDS ORDERED: ONDANSETRON PF 4 MG/2 ML VIAL. IVP ONE (20:00)
[2021-02-01] MEDS ORDERED: oxyCODONE/APAP 5/325 1 TAB TABLET PO ONE (20:00)
--- NOTE | 2021-02-01 20:11 | RAD ---
Exam Date: 02/01/2021 7:[address] HEAD AND C-SPINE WO Indication: Reason: exacerbation of head ache, visual changes / Spl. Instructions: / History: . One or more of the following dose reduction techniques were utilized: *Automated exposure control (AEC) *Adjustment of mA and/or kV according to patient size *Use of iterative reconstruction technique *CT scan done according to ALARA, or ALARA/IMAGE GENTLY EXAMINATION: CT OF THE HEAD WITHOUT CONTRAST INDICATION: Trauma, head injury, headache; TECHNIQUE: Noncontrast helical axial CT images of the head were obtained. COMPARISON: June 01, 2019 FINDINGS: The ventricles and sulci are normal for the patient's stated age. There is no evidence of acute int racranial hemorrhage, extra-axial collection, mass effect, midline shift, or acute territorial infarc t. No lesion of the skull base or the calvarium is seen. The visualized paranasal sinuses, mastoid ai r cells, and orbits are normal in appearance. IMPRESSION: No evidence for acute intracranial abnormality. EXAMINATION: CT OF THE CERVICAL SPINE WITHOUT CONTRAST Clinical Indication: Cervical spine pain after trauma Technique: Thin cut helical axial CT images through the cervical spine were obtained without contrast on a multi-detector CT scanner. Source data was then reconstructed into sagittal and coronal planes. Findings: Alignment is maintained without spondylolisthesis. Vertebral body heights are maintained without acute fracture. Disc spaces are preserved. No signific ant prevertebral soft tissue swelling is demonstrated. No severe osseous central canal stenosis is se en. Impression: No evidence of acute cervical spine fracture or subluxation. Electronically signed by: Mian Go MD (02/01/2021 8:09 PM) [facility]
[2021-02-01] MEDS ORDERED: CYCL10TA19 PO (21:03)
[2021-02-01] MEDS ORDERED: HYDR-1179 PO ×2 (21:03→21:16)
[2021-02-01 21:17] VITALS: BP 156/77
--- NOTE | 2021-02-01 22:12 | EKG ---
[address] [address] Test Date: 2021-02-01 Test Time: 18:13:30 Pat Name: QING SAMUEL Department: Room: Gender: F [employer]: ROSALINA : 1985 Requested By: ANGUS BACK Order Number: [id number] Reading MD: Measurements Intervals Marshall Rate: 102 P: 64 DE: 134 QRS: 54 QRSD: 86 T: 25 QT: 338 QTc: 445 Interpretive Statements SINUS TACHYCARDIA OTHERWISE NORMAL ECG RI6.02 No previous ECG available for comparison
== END 2021-02-01 21:19 | disposition home or self-care (01) ==
LOC: ER 17:44
DX: I10 Essential (primary) hypertension (principal); R51.9 Headache, unspecified; M54.59 Other low back pain; M53.3 Sacrococcygeal disorders, not elsewhere classified; F41.9 Anxiety disorder, unspecified; F17.210 Nicotine dependence, cigarettes, uncomplicated; F31.9 Bipolar disorder, unspecified
CPT/HCPCS: 36415; 70450; 71045; 72125; 72131; 80048; 80076; 81001; 82550; 83880; 84484; 85025; 93005; 96361; 96374; 99285; J1885; J7120